=== PATIENT | female | born 1985 | race African-American/Black ===

== ENCOUNTER 2017-05-11 23:55 | Emergency (ER) | payer OTHER ==
[2017-05-12 00:43] VITALS: BP 121/90; PULSE 89; TEMP 98.6; BMI 31.1
--- NOTE | 2017-05-12 00:56 | PDOC ---
History of Present Illness - General History Source: Patient Exam Limitations: No Limitations - History of Present Illness Initial Comments: 05/12/17 01:04 The patient is a 32 year old female with a significant past medical history of asthma and migraines who presents to the ED s/p mosquito bites. The patient reports she got 2 mosquito bites to her left hand and 3 bites to the left side of her neck last night. Since earlier today, patient reports the mosquito bites are swelling and progressively worsening. She reports taking benadryl and hydrocortisone at 6 pm and at 10 pm with slight relief. Patient states she has not been scratching her mosquito bites. Denies fever or chills. Denies any other symptoms. <Star Trevino - Last Filed: 05/12/17 01:04> - General History Source: Patient Exam Limitations: No Limitations <Ko Bell - Last Filed: 05/13/17 10:33> - General Chief Complaint: Itching Stated Complaint: ALLERGIC REACTION/MOSQUITO BITE Time Seen by Provider: 05/12/17 00:26 Past History <Star Trevino - Last Filed: 05/12/17 01:04> - Past Medical History Asthma: Yes Other medical history: migraines - Psycho/Social/Smoking Cessation Hx Anxiety: No Suicidal Ideation: No Smoking Status: No Smoking History: Never smoked Have you smoked in the past 12 months: No Number of Cigarettes Smoked Daily: 0 Information on smoking cessation initiated: No Hx Alcohol Use: No Drug/Substance Use Hx: No Substance Use Type: None <Ko Bell - Last Filed: 05/13/17 10:33> - Past Medical History Allergies/Adverse Reactions: Allergies Allergy/AdvReac Type Severity Reaction Status Date / Time No Known Allergies Allergy Verified 05/12/17 00:45 Home Medications: Ambulatory Orders NK [No Known Home Medication] 05/12/17 Review of Systems - Review of Systems Able to Perform ROS?: Yes Comments:: 05/12/17 01:04 CONSTITUTIONAL: No reported: Fever, Chills, Diaphoresis, Generalized Weakness, Malaise, Loss of Appetite SKIN: + mosquito bites No reported: Rash, Itching, Pallor All Other Systems: Reviewed and Negative <Star Trevino - Last Filed: 05/12/17 01:04> *Physical Exam - Vital Signs Last Vital Signs Temp Pulse Resp BP Pulse Ox 98.6 F 89 18 121/90 100 05/12/17 00:40 05/12/17 00:40 05/12/17 00:40 05/12/17 00:40 05/12/17 00:40 - Physical Exam Comments: 05/12/17 01:04 GENERAL: The patient is awake, alert, and fully oriented, Nontoxic - in no acute distress. SKIN: + Multiple indurated lesions that are mildly erythematous, not warm to the touch not fluctuant, on the dorsum of the left hand and ulnar aspect of left wrist and 3 on the left neck. Warm, Dry, normal turgor, <Star Trevino - Last Filed: 05/12/17 01:04> - Vital Signs Last Vital Signs Temp Pulse Resp BP Pulse Ox 98.6 F 89 18 121/90 100 05/12/17 00:40 05/12/17 00:40 05/12/17 00:40 05/12/17 00:40 05/12/17 00:40 <Ko Bell - Last Filed: 05/13/17 10:33> Medical Decision Making - Medical Decision Making 05/12/17 00:53 pts symptoms consistent with insect bite, likely mosquito bite no signs of infection or cellulitis as there is no warmth nor significant tenderness. pt alraedy takin benadryl for itching and hydrocortisone cream will have pt continue same tretment will have pt fu with pmd return precautions were discussed <Ko Bell - Last Filed: 05/13/17 10:33> *DC/Admit/Observation/Transfer - Attestations Scribe Attestion: 05/12/17 01:04 Documentation prepared by Star Trevino, acting as medical laboratory manager for Ko Bell MD <Star Trevino - Last Filed: 05/12/17 01:04> - Discharge Dispostion Admit: No <Ko Bell - Last Filed: 05/13/17 10:33> Diagnosis at time of Disposition: Mosquito bite Qualifiers: Encounter type: initial encounter Qualified Code(s): W57.XXXA - Bitten or stung by nonvenomous insect and other nonvenomous arthropods, initial encounter - Discharge Dispostion Disposition: HOME Condition at time of disposition: Improved - Referrals Referrals: Carmelo Bowen MD [Primary Care Provider] - - Patient Instructions Printed Discharge Instructions: DI for Insect Bites and Stings Additional Instructions: Return to the emergency department immediately with ANY new, persistent or worsening symptoms including any pain, fever/chills, or other concerns. Continue using the hydrocortisone cream and benadryl for itching. You MUST call and follow up with your doctor in 2- 3 days for further evaluation of your symptoms. Results were discussed with you. Please make sure your doctor reviews the results of your emergency evaluation. Print Language: SENEGALESE
== END 2017-05-12 01:04 | disposition home or self-care (01) ==
LOC: JER 23:55
DX: S60.562A Insect bite (nonvenomous) of left hand, initial encounter (principal); S60.862A Insect bite (nonvenomous) of left wrist, initial encounter; S10.86XA Insect bite of other specified part of neck, initial encounter; W57.XXXA Bitten or stung by nonvenomous insect and other nonvenomous arthropods, initial encounter; Y93.89 Activity, other specified; Y92.89 Other specified places as the place of occurrence of the external cause
CPT/HCPCS: 99282-25